=== PATIENT | female | born 1990 | race Caucasian/White ===

== ENCOUNTER 2019-03-07 16:39 | Inpatient (IN) | payer OTHER ==
[~2019-03-07] VITALS: Ht 167.6 cm; Wt 74.1 kg
[2019-03-07 17:36] VITALS: BP 125/86
[2019-03-07 19:08] VITALS: BP 135/84
[2019-03-07] MEDS ORDERED: D5%-LACTATED RINGERS 1,000 ML IV SCH (19:25)
[2019-03-07] MEDS ORDERED: OXYTOCIN 30U/ 0.9% NaCL 500ML 500 ML IV PRN (19:25)
[2019-03-07] MEDS ORDERED: LACTATED RINGERS 1,000 ML IV SCH ×2 (19:25→20:33)
[2019-03-07] MEDS ORDERED: OXYTOCIN 30U/ 0.9% NaCL 500ML 500 ML IV ONE (19:25)
[2019-03-07] MEDS ORDERED: FENTANYL PF 100 MCG/2ML IVPush PRN (19:30)
[2019-03-07] MEDS ORDERED: SODIUM CITRATE/CITRIC ACID 15 ML UDC PO PRN (19:30)
[2019-03-07] MEDS ORDERED: TERBUTALINE 1 MG/ML, 1ML IVPush PRN (19:30)
[2019-03-07] MEDS ORDERED: METOCLOPRAMIDE 5 MG/ML, 2ML IVPush PRN (19:30)
[2019-03-07] MEDS ORDERED: FENTANYL PF 100 MCG/2ML IV PRN (19:30)
[2019-03-07] MEDS ORDERED: LIDOCAINE 1%, 20ML ONE (19:31)
[2019-03-07] MEDS ORDERED: MISOPROSTOL 200 MCG TABLET ONE (19:31)
[2019-03-07] MEDS ORDERED: OXYTOCIN 30U/ 0.9% NaCL 500ML 500 ML ONE (19:31)
[2019-03-07] MEDS ORDERED: NEWBORN KIT ONE (19:31)
[2019-03-07] MEDS: LACTATED RINGERS 1,000 ML IV SCH (19:51)
[2019-03-07] MEDS ORDERED: FENTANYL/BUPIV./NS/PF 250 ML EPIDCONT SCH ×2 (19:56→20:33)
[2019-03-07] MEDS ORDERED: EPHEDRINE 50 MG/ML, 1ML IVPush PRN ×2 (20:00→21:00)
[2019-03-07] MEDS ORDERED: LACTATED RINGERS 1,000 ML IVBOLUS PRN ×2 (20:00→21:00)
[2019-03-07 20:01] LABS: BASOPHILS # (AUTO) 0.04 x10^3/uL (0-0.1); BASOPHILS % (AUTO) 0 % (0-1); EOSINOPHILS # (AUTO) 0.04 x10^3/uL (0-0.4); EOSINOPHILS % (AUTO) 0 % (1-7); LYMPHOCYTES # (AUTO) 1.97 x10^3/uL (1-3.4); LYMPHOCYTES % (AUTO) 20 % (22-44); MD NO; MEAN CORPUSCULAR HEMOGLOBIN 33.3 pg (27.0-34.8); MEAN CORPUSCULAR HGB CONC 33.3 g/dL (32.4-35.8); MEAN CORPUSCULAR VOLUME 100.2 fL (80-100); MEAN PLATELET VOLUME 7.5 fL (7.4-10.4); MONOCYTES # (AUTO) 0.63 x10^3/uL (0.2-0.8); MONOCYTES % (AUTO) 7 % (2-9); NEUTROPHILS # (AUTO) 7.15 x10^3/uL (1.8-6.8); NEUTROPHILS % (AUTO) 73 % (42-75); PLATELET COUNT 237 x10^3/uL (130-400); RED CELL DISTRIBUTION WIDTH 13.4 % (9.6-15.2)
[2019-03-07] MEDS ORDERED: BUPIVACAINE 0.25% ONE (20:05)
[2019-03-07] MEDS ORDERED: FENTANYL PF 500 MCG, BUPIVACAINE/PF 0.5%, 30ML 62.5 ML in SODIUM CHLORIDE 0.9% 177.5 ML EPIDCONT SCH (20:30)
[2019-03-07] MEDS ORDERED: ONDANSETRON 2MG/ML, 2ML ONE (20:49)
[2019-03-07] MEDS ORDERED: ONDANSETRON 2MG/ML, 2ML IVPush PRN (21:00)
[2019-03-08] MEDS ORDERED: METHYLERGONOVINE 0.2 MG/ML IM PRN (02:00)
[2019-03-08] MEDS ORDERED: CARBOPROST TROMETHAMINE 250 MCG/ML, 1ML IM PRN (02:00)
[2019-03-08] MEDS ORDERED: OXYcodone/APAP 5/325MG TABLET PO PRN ×2 (02:00)
[2019-03-08] MEDS ORDERED: ONDANSETRON 2MG/ML, 2ML IV PRN (02:00)
[2019-03-08] MEDS ORDERED: MISOPROSTOL 200 MCG TABLET PR PRN (02:00)
[2019-03-08] MEDS ORDERED: OXYTOCIN 30U/ 0.9% NaCL 500ML 500 ML ONE (02:03)
[2019-03-08] MEDS ORDERED: IBUPROFEN 600 MG TABLET ONE (02:03)
[2019-03-08] MEDS: OXYTOCIN 30U/ 0.9% NaCL 500ML 500 ML IV SCH ×3 (02:05→21:49)
[2019-03-08] MEDS ORDERED: IBUPROFEN 800 MG TABLET ONE (02:07)
[2019-03-08] MEDS: IBUPROFEN 800 MG TABLET PO PRN ×2 (02:13→13:03)
[2019-03-08] MEDS: LACTATED RINGERS 1,000 ML IV SCH ×3 (03:51→19:51)
[2019-03-08 04:10] VITALS: BP 116/70
[2019-03-08 07:33] VITALS: BP 118/88
[2019-03-08] MEDS: PRENATAL VIT/IRON/FA 1 EACH TABLET PO SCH (07:38)
[2019-03-08] MEDS: DOCUSATE 100 MG CAPSULE PO SCH ×2 (07:38→20:54)
[2019-03-08 08:45] LABS: MEAN CORPUSCULAR HEMOGLOBIN 32.5 pg (27.0-34.8); MEAN CORPUSCULAR HGB CONC 32.6 g/dL (32.4-35.8); MEAN CORPUSCULAR VOLUME 99.8 fL (80-100); MEAN PLATELET VOLUME 6.9 fL (7.4-10.4); PLATELET COUNT 176 x10^3/uL (130-400); RED BLOOD COUNT 3.45 x10^6/uL (3.82-5.3); RED CELL DISTRIBUTION WIDTH 13.3 % (9.6-15.2)
[2019-03-08 09:09] LABS: BASOPHILS # (AUTO) 0.02 x10^3/uL (0-0.1); BASOPHILS % (AUTO) 0 % (0-1); EOSINOPHILS # (AUTO) 0.02 x10^3/uL (0-0.4); EOSINOPHILS % (AUTO) 0 % (1-7); LYMPHOCYTES # (AUTO) 1.04 x10^3/uL (1-3.4); LYMPHOCYTES % (AUTO) 8 % (22-44); MD SCAN; MONOCYTES # (AUTO) 0.65 x10^3/uL (0.2-0.8); MONOCYTES % (AUTO) 5 % (2-9); NEUTROPHILS # (AUTO) 10.88 x10^3/uL (1.8-6.8); NEUTROPHILS % (AUTO) 86 % (42-75)
[2019-03-08 12:30] VITALS: BP 105/69
[2019-03-08 19:10] VITALS: BP 122/77
[2019-03-08] MEDS: IBUPROFEN 600 MG TABLET PO PRN (20:54)
[2019-03-09 00:30] VITALS: BP 108/73
[2019-03-09] MEDS: LACTATED RINGERS 1,000 ML IV SCH ×2 (03:51→11:51)
[2019-03-09] MEDS: IBUPROFEN 600 MG TABLET PO PRN ×2 (04:47→10:56)
[2019-03-09 07:25] VITALS: BP 113/72
[2019-03-09] MEDS: OXYTOCIN 30U/ 0.9% NaCL 500ML 500 ML IV SCH (07:49)
[2019-03-09] MEDS: PRENATAL VIT/IRON/FA 1 EACH TABLET PO SCH (08:18)
[2019-03-09] MEDS: DOCUSATE 100 MG CAPSULE PO SCH (08:18)
[2019-03-09] MEDS ORDERED: IBUP-1222 PO (11:30)
[2019-03-09] MEDS ORDERED: OXYC-302 PO (11:32)
== END 2019-03-09 14:05 | disposition home or self-care (01) | DRG 768 ==
LOC: LDOP 16:39 → LDIP 19:33 → 2NW 03-08 03:48
PROVIDERS: ADMIT Obstetrics & Gynecology; ATTEND Obstetrics & Gynecology
PROC: 10907ZC Drainage of Amniotic Fluid, Therapeutic from Products of Conception, Via Natural or Artificial Opening (ICD-10-PCS; principal; 2019-03-08)
PROC: 0DQR0ZZ Repair Anal Sphincter, Open Approach (ICD-10-PCS; 2019-03-08)
PROC: 10E0XZZ Delivery of Products of Conception, External Approach (ICD-10-PCS; 2019-03-08)
PROC: 3E0R3BZ Introduction of Anesthetic Agent into Spinal Canal, Percutaneous Approach (ICD-10-PCS; 2019-03-08)
PROC: 00HU33Z Insertion of Infusion Device into Spinal Canal, Percutaneous Approach (ICD-10-PCS; 2019-03-08)
DX: O24.429 Gestational diabetes mellitus in childbirth, unspecified control (principal); Z37.0 Single live birth; O70.20 Third degree perineal laceration during delivery, unspecified; O69.81X0 Labor and delivery complicated by cord around neck, without compression, not applicable or unspecified; O76 Abnormality in fetal heart rate and rhythm complicating labor and delivery; O77.0 Labor and delivery complicated by meconium in amniotic fluid; Z3A.39 39 weeks gestation of pregnancy
CPT/HCPCS: 36415; S0020; 82962; 84112; 85025; 86850; 86900; G0378; J3010; J3490; J2590; J7050; J7120